=== PATIENT | male | born 1950 | race Caucasian/White ===

== ENCOUNTER 2022-06-15 08:02 | Outpatient (CLI) | payer MEDICARE, SELFPAY ==
--- NOTE | 2022-06-15 08:15 | CRLHL7_ITS ---
For Patients: As a result of the Century Cures Act, medical imaging exams and procedure reports are released immediately into your electronic medical record. You may view this report before your referring provider. If you have questions, please contact your health care provider. Indication: Low back pain. Technique: Multiplanar, multisequence MRI of the lumbar spine was performed without intravenous contrast. Comparison: None relevant available. Findings: There are 5 lumbar type vertebral segments identified. The vertebral body heights are maintained without evidence of fracture. There is no discrete T1 hypointense marrow infiltrating process. Mild levo convex curvature to the lumbar spine. The conus medullaris terminates at L1, normal. Cauda equina appears unremarkable. T12-L1: Minimal disc bulge without or foraminal narrowing. L1-2: Minimal disc bulge without spinal canal narrowing. Mild right neural foraminal narrowing. Left neural foramina patent. Mild facet arthropathy. L2-3: Mild disc bulge coupled ligamentum flavum thickening and facet hypertrophy resulting in mild spinal canal narrowing. Left foraminal disc protrusion abuts the exiting left L2 nerve. Right neural foramina appears patent. [id number] facet arthropathy. L3-4: Disc bulge couple ligamentum flavum thickening and facet hypertrophy resulting in mild spinal canal narrowing. Mild neural foraminal narrowing. Moderate facet arthropathy. L4-5: Mild disc bulge with minimal spinal canal narrowing. Disc bulge is slightly eccentric to the left slightly encroaching upon the descending left L4 nerve. Mild neural foraminal narrowing. Severe facet arthropathy. L5-S1: Moderate disc degeneration. No spinal canal or neural foraminal narrowing. Mild sacroiliac joint osteoarthritis. Impression: 1. At L2-3, left foraminal disc protrusion abutting the exiting left L2 nerve. 2. At L3-4, mild spinal canal and neural foraminal narrowing. 3. At L4-5, moderate left lateral recess narrowing with encroachment upon the descending left L4 nerve. 4. Moderate to severe multilevel facet arthropathy. Dictated by Shalom Rojas MD @ 06/15/2022 4:29:10 PM (Electronically Signed)
== END 2022-06-15 08:03 | disposition home or self-care (01) ==
PROVIDERS: PCP Family Medicine
DX: M54.50 Low back pain, unspecified (principal); M51.26 Other intervertebral disc displacement, lumbar region; I70.213 Atherosclerosis of native arteries of extremities with intermittent claudication, bilateral legs; G83.4 Cauda equina syndrome
CPT/HCPCS: 72148

== ENCOUNTER 2022-11-02 08:32 | Emergency (ER) | payer MEDICARE, SELFPAY ==
[2022-11-02 08:39] VITALS: BP 148/91; PULSE 99; RESP 18; TEMP 36.3; O2SAT 99; BMI 29.1
--- NOTE | 2022-11-02 08:49 | ED.GENADULT ---
HPI - General Adult General Chief complaint: Altered Mental Status Stated complaint: poor memory Time Seen by Provider: 11/02/22 08:49 History of Present Illness HPI narrative: pt here with confusion, got up this am about 0600 and made coffee then went out for a bike ride on his electric bike and now cannot remember going on bike ride upon returning home, per pt seemed cheerful and when they sat down for breakfast he was unable to recall questions he just asked, pt tearful 72-year-old man presenting to the emergency department with his with concern of confusion. Has per been experiencing some episodes of this over the last few months. This morning though he got up and went for usual bike ride. Sounds like it was a nice bike ride but once home in having sat down for breakfast he was unable to recall a number of things and this has continued. Can not remember what they/he did with the grandkids over the weekend among other things. No loss of sensation or weakness. No visual disturbances. No headache though does have a history of complex migraines. Did have recent neck injections with anesthetic and steroid for neck pain. Sounds as though description of location of injection would be where 1 might treat occipital neuralgia. Otherwise has been in usual state of health. No chest pain shortness of breath or difficulty with exertion. Related Data Home Medications Medication Instructions Recorded Confirmed acetaminophen 500 mg tablet 500 mg PO Q6H PRN 11/02/22 11/02/22 (Acetaminophen Extra Strength) cetirizine 10 mg capsule (Allergy 10 mg PO DAILY PRN 11/02/22 11/02/22 Relief (cetirizine)) cholecalciferol (vitamin D3) 50 50 mcg PO DAILY 11/02/22 11/02/22 mcg (2,000 unit) chewable tablet cyanocobalamin (vitamin B-12) 100 mcg IM Q4W 11/02/22 11/02/22 1,000 mcg/mL injection solution (Dodex) epinephrine 0.3 mg/0.3 mL IM 11/02/22 injection, auto-injector fluticasone propionate 50 1 spray intranasal DAILY PRN 11/02/22 11/02/22 mcg/actuation nasal spray,suspension (24 Hour Allergy Relief) gabapentin 300 mg capsule 300 mg PO 3XD 11/02/22 11/02/22 omega-3 fatty acids-fish oil 300 1 cap PO DAILY 11/02/22 11/02/22 mg-1,000 mg capsule tizanidine 2 mg tablet 2 - 4 mg PO 3XD 11/02/22 11/02/22 Allergies Allergy/AdvReac Type Severity Reaction Status Date / Time aspirin Allergy Verified 11/02/22 08:38 ciprofloxacin [From Cipro] Allergy Verified 11/02/22 08:38 sulfamethoxazole Allergy Verified 11/02/22 08:38 [From Bactrim] trimethoprim [From Bactrim] Allergy Verified 11/02/22 08:38 Review of Systems Status of ROS: Reports: 6 or more systems reviewed and unremarkable except as noted in History and below PFSH PFS Social History Smoking Status: Never smoker How often do you have a drink containing alcohol: monthly or less AUDIT-C Alcohol total score: 1 Non-prescribed substance use: denies use Exam Narrative: Exam Narrative: Very pleasant. NAD. Becomes a little tearful. Clearly a little difficulty with recall. Well-perfused peripherally and moving all extremities without difficulty; good strength. No sensory loss. Cranial nerves 2-12 intact. Heart with mildly elevated rate in a regular rhythm. Lungs are clear. No evidence of trauma on his person. Abdomen is soft and nontender. Const: Vital Signs, click to edit/add: Vital Signs - 24 hr 11/02/22 08:39 Temperature 97.3 F L Pulse Rate [Right Pulse Oximeter] 99 Respiratory Rate 18 Blood Pressure [Ri ght Upper Arm] 148/91 H Pulse Oximetry 99 Oxygen Delivery Me thod Room Air Documenting provider has reviewed patient's vital signs: yes Course Vital Signs Vital signs: Initial Vital Signs Temperature 97.3 F L 11/02/22 08:39 Temperature Source Temporal Artery Scan 11/02/22 08:39 Pulse Rate 99 11/02/22 08:39 Respiratory Rate 18 11/02/22 08:39 Blood Pressure 148/91 H 11/02/22 08:39 Blood Pressure Mean 110 H 11/02/22 08:39 Blood Pressure Position Sitting 11/02/22 08:39 Pulse Oximetry 99 11/02/22 08:39 Oxygen Delivery Method Room Air 11/02/22 08:39 Vital Signs Temperature 97.3 F L 11/02/22 08:39 Pulse Rate 99 11/02/22 08:39 Respiratory Rate 18 11/02/22 08:39 Blood Pressure 148/91 H 11/02/22 08:39 Pulse Oximetry 99 11/02/22 08:39 Oxygen Delivery Method Room Air 11/02/22 08:39 Temperature 97.3 F L 11/02/22 08:39 Pulse Rate 77 11/02/22 10:33 Respiratory Rate 18 11/02/22 10:33 Blood Pressure 136/79 11/02/22 10:33 Pulse Oximetry 94 11/02/22 10:33 Oxygen Delivery Method Room Air 11/02/22 10:33 Medical Decision Making MDM Narrative Medical decision making narrative: Differential includes TIA, CVA, amnesia of unclear etiology stress response, not really a dissociated experience, atypical migraine, indolent infection, electrolyte abnormality though would be rather specific, vitamin deficiency. IV has been established. Urinalysis collected. He is hydrating. Monitored in the emergency department for a time and memory began to improve, return. They were relieved. Discussed this case with Neurology on-call to inquire whether any imaging would be warranted in this case. I have a hard time thinking that imaging would be terribly useful. Neurology favors transient global amnesia. Able to offer reassurance to Mr. Manzanares. See patient discharge plan Lab Data Labs: Lab Results 11/02/22 Range/Units Unknown Urine Color Yellow (Yellow) Urine Appearance Clear (Clear) Urine pH 6.0 (5.0-8.5) Ur Specific [place] 1.015 (1.000-1.030) Urine Protein Negative (Negative) Urine Glucose (UA) Negative (Negative) Urine Ketones Negative (Negative) Urine Blood Negative (Negative) Urine Nitrite Negative (Negative) Urine Bilirubin Negative (Negative) Urine Urobilinogen 0.2 (0.2-1.0) Ur Leukocyte Esterase Negative (Negative) Urine RBC 0-2 (0-2) Urine WBC 0-2 (0-5) Ur Squamous Epith Cells None (None-Few) Urine Bacteria None (None) Discharge Plan Discharge Clinical Impression: Transient global amnesia Patient Disposition: Home w/ Parent or Adult Condition: Improved Additional Instructions: Stay well-hydrated. Your brain likes this. Your brain also likes quality and regular sleep and exercise. Return as needed. Will call you if anything going on with the urinalysis Prescriptions: No Action tizanidine 2 mg tablet 2 - 4 mg PO 3XD gabapentin 300 mg capsule 300 mg PO 3XD acetaminophen [Acetaminophen Extra Strength] 500 mg tablet 500 mg PO Q6H PRN Allergy Relief (cetirizine) 10 mg capsule 10 mg PO DAILY PRN cholecalciferol (vitamin D3) 50 mcg (2,000 unit) tablet,chewable 50 mcg PO DAILY epinephrine 0.3 mg/0.3 mL auto-injector IM fluticasone propionate [24 Hour Allergy Relief] 50 mcg/actuation spray,suspension 1 spray intranasal DAILY PRN Rx Instructions: administer into each nostril omega-3 fatty acids-fish oil 300-1,000 mg capsule 1 cap PO DAILY cyanocobalamin (vitamin B-12) [Dodex] 1,000 mcg/mL solution 100 mcg IM Q4W Follow Up/Referrals: Jannet Reddy DO [Primary Care Provider] - Stand Alone Forms: [facility] Info Instructions
--- NOTE | 2022-11-02 09:07 | ED.NURSE ---
#20 sl [id number] r ac, blood drawn off iv start.
[2022-11-02 09:59] LABS: Appearance Urine Clear (Clear); Bilirubin Urine Negative (Negative); Blood Urine Negative (Negative); Color Urine Yellow (Yellow); Glucose Urine Negative (Negative); Ketones Urine Negative (Negative); Leukocyte Esterase Urine Negative (Negative); Nitrite Urine Negative (Negative); Protein Urine Negative (Negative); Specific Gravity Urine 1.015 (1.000-1.030); Urobilinogen Urine 0.2 (0.2-1.0)
[2022-11-02 10:07] LABS: RBC Urine 0-2 (0-2); WBC Urine 0-2 (0-5)
[2022-11-02 10:33] VITALS: BP 136/79; PULSE 77; RESP 18; O2SAT 94
== END 2022-11-02 10:36 | disposition home or self-care (01) ==
PROVIDERS: Emergency Provider Family Medicine; PCP Family Medicine
DX: G45.4 Transient global amnesia (principal)
CPT/HCPCS: 81001; 99282; 99283; 99284

== ENCOUNTER 2023-03-12 20:58 | Outpatient (CLI) | payer MEDICARE, SELFPAY | END 2023-03-12 20:59 | disposition home or self-care (01) | LOC: SLEEP 20:59 | PROVIDERS: PCP Family Medicine; Visit Provider Otolaryngology | DX: G47.33 Obstructive sleep apnea (adult) (pediatric) (principal); G47.31 Primary central sleep apnea | CPT/HCPCS: 95811 ==

== ENCOUNTER 2023-04-29 20:29 | Outpatient (CLI) | payer MEDICARE, SELFPAY | END 2023-04-29 20:30 | disposition home or self-care (01) | LOC: SLEEP 20:30 | PROVIDERS: PCP Family Medicine; Visit Provider Internal Medicine | DX: G47.33 Obstructive sleep apnea (adult) (pediatric) (principal); G47.31 Primary central sleep apnea | CPT/HCPCS: 95811 ==

== ENCOUNTER 2023-08-21 08:45 | Outpatient (RCR) | payer MEDICARE, SELFPAY | END 2023-09-17 14:33 | disposition home or self-care (01) | PROVIDERS: PCP Family Medicine; Visit Provider Family Medicine | DX: M54.42 Lumbago with sciatica, left side (principal); Z51.89 Encounter for other specified aftercare | CPT/HCPCS: 97012; 97110; 97161 ==

== ENCOUNTER 2024-02-14 07:15 | Outpatient (CLI) | payer MEDICARE, SELFPAY ==
--- NOTE | 2024-02-14 08:29 | W.ANESCHARGE ---
Anesthesia Charges Start Date/Time Anesthesia Start Date: 02/14/24 Anesthesia Start Time: 08:04 Stop Date/Time Anesthesia Stop Date: 02/14/24 Anesthesia Stop Time: 08:27
--- NOTE | 2024-02-14 09:35 | W.ANESCHARGE ---
Anesthesia Charges Start Date/Time Anesthesia Start Date: 02/14/24 Anesthesia Start Time: 08:04 Stop Date/Time Anesthesia Stop Date: 02/14/24 Anesthesia Stop Time: 08:27 Summary Extremes of Age - Over 70 or under 1: MDA
== END 2024-02-14 07:16 | disposition home or self-care (01) ==
LOC: OP CLINIC 07:16
PROVIDERS: PCP Family Medicine; Visit Provider Internal Medicine Gastroenterology
DX: Z12.11 Encounter for screening for malignant neoplasm of colon (principal); D12.2 Benign neoplasm of ascending colon; K64.8 Other hemorrhoids; Z86.0101 Personal history of adenomatous and serrated colon polyps
CPT/HCPCS: 00811; 45380; 88305; 99100; J2704

== ENCOUNTER 2024-03-11 07:16 | Day surgery (SDC) | payer MEDICARE, SELFPAY ==
[2024-03-11] VITALS (26 sets, daily range): BP systolic 90–155; BP diastolic 52–89; PULSE 59–100; RESP 12–18; TEMP 36.1–36.6; O2SAT 93–99; BMI 29.5
[2024-03-11] MEDS: LACTATED RINGERS 1000 ML 1,000 ML 100 ML IV ×2 (07:10→10:40)
--- OUTSIDE RECORDS SUMMARY | 2024-03-11 07:20 | XMS_ITS | Clinical Summary ---
Author Organization [facility] Address [address] [place] [address] Care Team Providers Care Surface Miner Name Role Phone Unavailable Primary Care Provider Unavailabl e Source Comments Patient records contain information from all sites at [facility]. For routine questions regarding patient records, call [phone] during business hours, M-F 8:00 AM - 5:00 PM Central Time. Record requests for emergency care only can be directed to [phone] at any time.[facility] Immunizations Name Administration Dates Next Due H1N1 All Forms 03/28/2009 Influenza, Unspecified 11/14/2009,2008,01/16/2008,12/10/2006, 3 Social History Tobacco Use Types Packs/Day Years Used Date Smoking Tobacco: Never Assessed Nutrition Answer Date Recorded Nutrition: EVOO Fat Source Unknown 03/22 Nutrition: Servings of Fruits/Vegetables per Day Not on file 03/22/2023 Dental Answer Date Recorded Dental: Regular Dentist Unknown 03/25/19 24 Sex and Gender Information Value Date Recorded Sex Assigned at Not on file Legal Sex Male 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 [employer] Gender Identity Male 03/25/2023 9:04 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 [employer] Sexual Orientation Straight 03/25/2023 9: 04 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 [employer]UD[employer] Plan of Treatment Health Maintenance Due Date Last Done Comments CT Colonography 1949 Cologuard 1950 Colonoscopy 1950 Colorectal Cancer Screening 1950 FIT 1950 Hepatitis C Screening 1950 Zoster Vaccines (2 of 3) 02/13/2012 12/19/2011 Depression Screening (Annual PHQ-2) 03/04/2023 Fall Risk Screen (Annual) 03/04/2023 COVID-19 Vaccine ( season) 2023 12/05/2022, 12/12/2021, 07/04/2021, Additional history exists Influenza Vaccine (#1) 2023 , 12/13/2021, 11/28/2020, Additional history exists Fasting Glucose for Diabetes Screening 03/25/2026 03/25/2023, 03/28/2022, 02/15/2021, Additional history exists DTaP,Tdap,and Td Vaccines (3 - Td or Tdap) 06/24/2031 06/23/2021, 12/28/2010 Pneumococcal vaccine (50+ years) Completed 03/23/2016, 01/07/2015 IPV Vaccines Aged Out No longer eligi ble based on patient's age to complete this topic Insurance [facility]
--- OUTSIDE RECORDS SUMMARY | 2024-03-11 07:20 | XMS_ITS | Clinical Summary ---
Author Organization [facility] Address [place], [place] [address] Care Team Providers Care Wireless Cellular Technician Name Role Phone Brandy Rivera MD Unavailable [phone] Teresa Graves MD Unavailable Jannet Reddy DO Primary Care Provider Allergies Active Allergy Reactions Criticality Noted Date Comments Aspirin Anaphylaxis 07/01/2006 Sulfamethoxazole-Trimet hoprim Shortness Of Breath 07/16/2006 Hymenoptera Allergenic Extract 07/01/2006 Ciprofloxacin Other - Describe In Comment Field 07/01/2006 intol Duloxetine Other - Describe In Comment Field 11/24/2013 Mood swings and anxiety Trazodone 07/01/2006 intol priprisim Venlafaxine Analogues Mental Status Change 01/03 Pramipexole Mental Status Change 07/13/2013 24 hours of extreme fatigue and mental status change. Medications acetaminophen (TYLENOL EXTRA STRGTH) 500 mg tablet Take 1 tablet by mouth every 6 hours if needed. Max acetaminophen dose: 4000mg in 24 hrs. 0 08/07/19 12 Active omega-3 fatty acids-vitamin E (FISH OIL) 1,000 mg cap Take 1 capsule by mouth once daily. 0 12/19/19 12 Active cetirizine (ZYRTEC) 10 mg tablet Take 1 tablet by mouth once daily. 0 11/10/19 15 Active fluticasone (50 mcg per actuation) nasal solution (FLONASE) Inhale 1 [place] into both nostrils once daily. 11/27/19 Active CONTOUR NEXT TEST STRIPS strip 03/10/19 Active CONTOUR NEXT METER 03/10/19 Active cholecalciferol (VITAMIN D-3) 2,000 unit capsule Take 1 capsule by mouth once daily. 0 02/12/20 Active BiPapIndications: Complex sleep apnea syndrome ASV-BIPAP machine for home use at pressure: EPAP at 9 cmw PS 3-10 cmw, Mask of choice 1 x 3 mo, lifetime length of need, daily use. 1 Each 05/27/19 24 Active tiZANidine (ZANAFLEX) 2 mg tabletIndications :Cervical stenosis of spine Take 1 Tablet (2 mg) by mouth every 6 hours if needed for Muscle Spasm. 90 Tablet 3 07/03/19 24 Active gabapentin (NEURONTIN) 300 mg capsuleIndication s:Headache syndrome,Fibromya lgia TAKE 3 CAPSULES BY MOUTH AT BEDTIME 300 Capsule 2 10/26/19 24 Active meclizine (ANTIVERT) 25 mg tabletIndications :Benign positional vertigo, right Take 1 Tablet (25 mg) by mouth 3 times daily if needed for Vertigo. 30 Tablet 12/09/19 24 Active EPINEPHrine (EPIPEN) 0.3 mg/0.3 mL auto-injectorIndi cations:Bee sting allergy Inject 0.3 mg intramuscular one time if needed for Allergic Reaction. 1 Each 02/21/20 24 Active EPINEPHrine (EPIPEN) 0.3 mg/0.3 mL auto-injectorIndi cations:Bee sting allergy Inject 0.3 mg intramuscular one time if needed for Allergic Reaction. 1 Each 03/28/19 23 024 Discontin ued(Reord er (E-cancel not sent)) naproxen (ALEVE) 220 mg tabletIndications :Primary osteoarthritis of left hip Take 1-2 Tablets (220-440 mg) by mouth two times daily with meals. 09/23/19 24 024 Discontin ued(*Med complete/ Regimen complete/ Level of care change) polyethylene glycol-electrolyt e (GOLYTELY) 236-22.74-6.74 -5.86 gram suspensionIndicat ions:Polyp of colon, unspecified part of colon, unspecified type Drink 2 liters the day before colonoscopy and 2 liters 6 hours before colonoscopy appointment 4000 mL 02/03/20 24 024 Discontin ued(*Med complete/ Regimen complete/ Level of care change) Hospital, Clinic, or Other Facility Administered Medication Ordered Dose Route Frequency Start Date End Date Status cyanocobalamin (VITAMIN B12) 1,000 mcg/mL injection 1,000 mcgIndications:B12 deficiency 1000 mcg IM Q 4 WEEKS (28 days) 03/09/2024 02/08/2025 Active cyanocobalamin (VITAMIN B12) 1,000 mcg/mL injection 1,000 mcgIndications:B12 deficiency 1000 mcg IM Q 4 WEEKS (28 days) 03/26/2023 02/25/2024 Ended Active Problems Problem Noted Date Diagnosed Date 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 Complex sleep apnea syndrome 07/30/2023 Psoriatic arthritis 03/28/2022 Assessment & Plan (03/31/2023 10:18 AM PROFESSIONAL FEE CODER): chart update only today. stable. Jannet WatermanOPhilomena 03/31/2023 10:18 AM s/p right middle finger DIP joint fusion, DOS: 10/11/[address] Mike Nieves 10/23/2017 Cervical stenosis of spine 06/29/2016 Overview (06/29/2016): C4-5C5-6. Sees Neurology for this. Obesity 11/09/2014 Adjustment disorder with mixed anxiety and depre ssed mood 01/27/2014 Osteoarthritis of finger 09/03/2013 Headache(784.0) 08/18/2012 Restless leg syndrome 08/18/2012 Prediabetes 12/27/2011 Vitamin D deficiency 02/05/2011 Allergic rhinitis, cause unspecified 01/15/2011 Colon polyp 10/16/2010 Overview (02/20/2024): Colonoscopy 10/2010 polyp repeat in 3 years Colonoscopy 11/2013 polyp repeat in 5 years Colonoscopy 01/2019 polyp, repeat in 5 years Colonoscopy 02/2024 TA, repeat in 7 years Fibromyalgia 09/18/2010 Bee sting allergy 09/18/2010 Dyslipidemia 09/12/2008 Sensorineural hearing loss, asymmetrical 008 BPH with urinary obstruction 07/01/2006 Unspecified sleep apnea 07/01/2006 Overview (07/01/2006): has C-Pap Resolved Problems Problem Noted Date Diagnosed Date Resolved Date Disease of spinal cord, unspecified 02/05/2024 02/21/2024 Overview (02/05/2024): Documented on 08/09/2021 by RADHA HERNANDEZ TERE 10/30/2005 AHI-45 06/15/2013 017 Chest pain 09/12/2008 08/18/2012 Overview (01/31/2009): - cor angiogram negative, troponin negative x 3, no significant echo findings No recent symptoms. Mike Brian MD signed electronically .................... 01/31/2009 Encounters Date Type Department Care Team Description 03/09/2024 9:00 AM PROFESSIONAL FEE CODER Nurse/Clinic Staff Only [facility] [address] [place] [address] Immunization/Injection (VITAMIN B-12 INJECTION ) 03/09/2024 Travel 03/04/2024 Travel 02/21/2024 7:45 AM PROFESSIONAL FEE CODER Office Visit [facility] [address] [place] [address] Jannet Reddy, DO Preoperative Exam (left hip total replacement 03/11/24/Dr. Hercules); Musculoskeletal Problem (pain on right side goes into leg) 02/21/2024 Travel 02/16/2024 Travel 02/15/2024 Lab Requisition [facility] [phone] Kenney Christensen MD 02/14/2024 7:15 AM PROFESSIONAL FEE CODER Office Visit [facility] at [address] [address] Kenney Christensen MD 02/09/2024 Travel 02/06/2024 8:45 AM PROFESSIONAL FEE CODER Nurse/Clinic Staff Only [facility] [address] [place] [address] Immunization/Injection (VITAMIN B-12 INJECTION ) 02/05/2024 10:35 AM PROFESSIONAL FEE CODER Office Visit [facility] [address] [place] [address] Tamy Herring, Preoperative Exam ([facility] - 02/13 - [place] ) 02/05/2024 Travel 02/01/2024 Travel 01/09/2024 9:00 AM PROFESSIONAL FEE CODER Nurse/Clinic Staff Only [facility] [address] [place] [address] Immunization/Injection (VITAMIN B-12 INJECTION ) 01/09/2024 Travel 01/04/2024 Travel 12/10/2023 8:40 AM CDT Office Visit [facility] [address] [place] [address] Alejandro Gonzalez MD Musculoskeletal Problem (Follow-up USGI done on 11/13/2023/LEFT intra-articular hip joint/[place] relief for about a week, and had uncontrollable Hiccups ) 12/10/2023 Travel from Last 3 Months Immunizations Name Administration Dates Next Due AMB INFLUENZA IIV3 (AGE 65+ YRS) PF (Flu Clinic Only) 12/13/2018 AMB Influenza, IIV3 (Age >=3 years)(Flu Clinic Only) 12/18/2010,01/16/2008 Amb Influenza, Inactivated A IIV4 (Age 65+ Years) Preserv Free 12/10/2019 COVID-19 vaccine (Moderna 100mcg/0.5mL) PF, MDV 07/04/2021,05/16/2020,04/18/2020 COVID-19 vaccine (Moderna Leonardo lucia 50mcg/0.25mL) PF, MDV 01/02/2021 Influenza A (H1N1), Inactivated 03/28/2009 Influenza A (H1N1), Inactiva dimitrios (Age >=3 Years) 03/28/2009 Influenza, High-dose Inactivated 12/06/2023,10/0 09/2015,01/07/2015 Influenza, High-dose Quadriv alent Inactivated 11/26/2022 Influenza, IIV3 (Age 6-35 mos) 12/18/2010,2009 Influenza, IIV3 (Age >=3 years) 11/11/19 13,11/20/2011,11/14/2009,12/06,01/16/2008,12/10/2006,12/13/2005 ,01/23/2003 Influenza, IIV4 12/08/2013 Influenza, Inactivated AIIV4 (Age 65+ Years) Preserv Free 12/13/2021,11/28/2020 Influenza, Inactivated IIV3 (Age 65+ Years) Preserv Free 11/20/2017,12/24/2016 Pneumococcal Poly,23-Valent (Pneumovax) 03/23/2016 Pneumococcal conj 13-Valent (Prevnar 13) 01/07/2015 RSV, Recombinant ADJ Reconst ituted (Arexvy 120MCG/0.5mL) 12/06/2023 Td (Age >=7 Years) 04/24/2004 Tdap 06/23/2021,12/28/2010 Zoster (Zostavax-ZVL, live) 12/19/2011 Family History Medical History Relation Name Comments Heart Disease Father at 57 of what sounds like valvular heart disease due to strep in childhood Allergies Mother Arthritis Mother Osteoarthritis Asthma Mother Cancer-breast Mother at 76 of breast cancer Other Mother migraines Relation Name Status Comments Father rheumatic heart disease Mother breast ca Social History Tobacco Use Types Packs/Day Years Used Date Smoking Tobacco: Never Smokeless Tobacco: Never Tobacco Cessation:Counseling Given: Yes Alcohol Use Standard Drinks/Week Comments Yes 0 (1 standard drink = 0.6 oz pure alcohol) 3-4 nights weekly glass of wine [facility] Utilities Answer Date Recorded Do you have trouble paying f or utilities (for example, heat, electricity, water, phone)? Yes 03/27/2023 PHQ-2 Answer Date Recorded PHQ-2 TOTAL SCORE 0 03/27/2023 Social Connections Answer Date Recorded Do you often feel lonely or isolated from those around you? 0 03/27/2023 Financial Resource Strain Answer Date R ecorded Difficulty of Paying Living Expenses 3 12/26/2022 Difficulty of Paying Living Expenses Not on file 12/26/2022 Food Insecurity Answer Date Recorded Do you worry your food will run out before you are able to buy more? 1 03/27/2023 Transportation Needs Answer Date Record ed Does lack of transportation keep you from medica l appointments? 1 03/27/2023 Does lack of transportation keep you from work, meetings or getting things that you need? 1 03/27/2023 Housing Stability Answer Date Recorded What is your housing situation today? 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 on file Not on file Not on file Obstetrics History Last Filed Vital Signs Vital Sign Reading Time Taken Comments Blood Pressure 117/66 02/21/2024 7:46 AM PROFESSIONAL FEE CODER Pulse 65 02/21/2024 7:46 AM PROFESSIONAL FEE CODER Temperature 36.9 C (98.4 F) 11/13/2023 9:00 AM CDT Respiratory Rate 18 07/08/2018 11:19 AM CDT Oxygen Saturation 98% 02/21/2024 7:46 AM PROFESSIONAL FEE CODER Inhaled Oxygen Concentration - - Weight 90.9 kg (200 lb 6.4 oz) 02/21/2024 7:46 A M PROFESSIONAL FEE CODER Height 176.5 cm (5' 9.5) 07/30/2023 9:58 AM CDT Body Mass Index 29.17 07/30/2023 9:58 AM CDT Plan of Treatment Upcoming Encounters Date Type Department Care Team (Late st Contact Info) Description 04/09/2024 9:00 AM PROFESSIONAL FEE CODER Nurse/Clinic Staff Only [facility] [address] [place] [address] Health Maintenance Due Date Last Done Comments Zoster (shingles) series for age 50+ (2 of 3) 02/13/2012 12/19/2011 Depression screening for age 12+ 03/29/2024 03/29/2023, 03/27/2023, 02/16/2021, Additional history exists Medicare Wellness for age 65+ 03/29/2024, 03/28/2022, 02/13/2021, Additional history exists BMI (ht and wt on same day) for age 18+ 07/29/2024 07/30/2023, 03/29/2023, 03/28/2022, Additional history exists Lipids for age 45-75 03/25/2028 03/25/2023, 03/28/2022, 02/15/2021, Additional history exists Colonoscopy through age 75 02/13/203102/13, 02/14/2024, 01/09/2019, Additional history exists Tetanus booster 06/24/2031 06/23/2021, 12/03, 04/24/2004 Hepatitis C screening for ag e 18-79 Completed 11/03/2013 Pneumococcal series for age 50+ Completed 7, 01/07/2015 Tdap Completed 06/23/2021, 12/28/2010 COVID-19 vaccine series Completed 12/06/19, 12/05/2022, 12/12/2021, Additional history exists Influenza for age 65+ Completed 12/06/2023 , 11/26/2022, 12/13/2021, Additional history exists RSV vaccine for adults or Completed 12/06/2023 Medical Devices Implanted Type Area Utility Plant Operative Device Identifier Shelf Expiration Date Model / Serial / Lot 2.5 Micro Conpression Ft Screws, Cannulated Fully Threaded. Implanted:Qty: 1 on 10/11/2017 by Mike Nieves MD at [facility] Right: Finger [employer] [id number] H / / [id number] H Description:[id number] Procedures Procedure Name Priority Date/Time Associated Diagnosis Comments EKG 12 LEAD Routine 02/24/2024 9:13 AM PROFESSIONAL FEE CODER Pre-op exam FL READING EKG - NO CHARGE, COMP ONLY Routine 02/24/2024 9:12 AM PROFESSIONAL FEE CODER Pre-op exam HEMOGLOBIN Routine 02/21/2024 8:50 AM PROFESSIONAL FEE CODER Pre-op exam PLATELET COUNT Routine 02/21/2024 8:50 AM PROFESSIONAL FEE CODER Pre-op exam BASIC METABOLIC PANEL Routine 02/21/2024 8:50 AM PROFESSIONAL FEE CODER Pre-op exam LAB TRACKING EVENT Routine 02/14/2024 8: 16 AM PROFESSIONAL FEE CODER PATH TISSUE EXAM Routine 02/14/2024 8:16 AM PROFESSIONAL FEE CODER COLONOSCOPY SCREENING Routine 02/14/2024 12:00 AM PROFESSIONAL FEE CODER Polyp of colon, unspecified part of colon, unspecified type History of colon polyps LIPID PANEL W REFLEX MEASURED LDL Routine 03/25/2023 11:35 AM PROFESSIONAL FEE CODER Dyslipidemia ANTI HCV Routine 11/03/2013 9:58 AM CDT Fibromyalgia from Last 3 Months or Most Recently Relevant to Health Maintenance Results * EKG 12 LEAD (02/24/2024 9:13 AM PROFESSIONAL FEE CODER) Jannet Reddy DO EKG ORD Final Resul t * FL READING EKG - NO CHARGE, COMP ONLY (02/24/2024 9:12 AM PROFESSIONAL FEE CODER) Jannet Lopest DO PB - PROVIDER READINGS Christal l Result * PLATELET COUNT [60166.2] (02/21/2024 8:50 AM PROFESSIONAL FEE CODER) PLATELET COUNT 225 140 - 400 Thousand/u L [facility] Blood BLOOD SPECIMEN / Unknown 02/21/2024 8:50 AM PROFESSIONAL FEE CODER 02/21/2024 8:50 AM PROFESSIONAL FEE CODER us Jannet Vu Detert DO HEMATOLOGY Final Resul t [facility] [address] [place] [address], [facility] [address] [place] [address] * HEMOGLOBIN (aka HGB) [83663.2] (02/21/2024 8:50 AM PROFESSIONAL FEE CODER) HEMOGLOBIN 13.7 13.2 - 17.1 g/dL [facility] Blood BLOOD SPECIMEN / Unknown 02/21/2024 8:50 AM PROFESSIONAL FEE CODER 02/21/2024 8:50 AM PROFESSIONAL FEE CODER us Jannet Vu Detert DO HEMATOLOGY Final Resul t Performing Organization Address City/[facility]/ZIP Co de Phone Number Retora Black [facility] [address] [place] [address], [place] [phone] [facility] [address] [place] [address] * (ABNORMAL) BASIC METABOLIC PANEL (02/21/2024 8:50 AM PROFESSIONAL FEE CODER) Pathologist [facility] GLUCOSE 100(H) 65 - 99 mg/dL [facility] Comment: Fasting reference interval For someone without known diabetes, a glucose value between 100 and 125 mg/dL is consistent with prediabetes and should be confirmed with a follow-up test. UREA NITROGEN (BUN) 18 7 - 25 mg/dL [facility] CREATININE 0.93 0.70 - 1.28 mg/dL [facility] EGFR 86 > OR = 60 mL/min/1. 73m2 [facility] BUN/CREATININE RATIO SEE NOTE: 6 - 22 (calc) [facility] Comment: Not Reported: BUN and Creatinine are within reference range. SODIUM 140 135 - 146 mmol/L [facility] POTASSIUM 4.7 3.5 - 5.3 mmol/L [facility] CHLORIDE 107 98 - 110 mmol/L [facility] CARBON DIOXIDE 25 20 - 32 mmol/L [facility] ELECTROLYTE BALANCE 8 7 - 17 mmol/L (calc) [facility] CALCIUM 9.4 8.6 - 10.3 mg/dL [facility] Blood BLOOD SPECIMEN / Unknown 02/21/2024 8:50 AM PROFESSIONAL FEE CODER 02/21/2024 8:50 AM PROFESSIONAL FEE CODER us Jannet Vu Detert DO CHEMISTRY Final Resul t Performing Organization Address [facility]/ZIP Co de Phone Number Retora Black [facility] [address] [place] [address], [place] [phone] [facility] [address] [place] [address] * LAB TRACKING EVENT (02/14/2024 8:16 AM PROFESSIONAL FEE CODER) Other (Other) Client Collect / Unknown 02/14/2024 8:16 AM PROFESSIONAL FEE CODER 02/15/2024 6:12 AM PROFESSIONAL FEE CODER us Kenney Christensen MD LAB BILL ONLY Final Res ult [facility] [address] [place] [id number], * PATH TISSUE EXAM (02/14/2024 8:16 AM PROFESSIONAL FEE CODER) Case Report Pathology Report Case: [id number] Authorizing Provider: Kenney Christensen MD Collected: 02/14/2024 0816 Ordering Location: [facility] Received: 02/17/2024 1039 Pathologist: Viktor Morse MD Specimen: Ascending Colon Biopsy 02/19/2024 4:12 PM PROFESSIONAL FEE CODER [facility] Final Diagnosis A) COLON, ASCENDING, POLYPECTOMY: 1. Tubular adenoma 2. Negative for high grade dysplasia 3. Per the colonoscopy report: a. Polyp size: 3 mm b. Resection: Complete c. Retrieval: Complete 02/19/2024 4:12 PM PROFESSIONAL FEE CODER [facility] Clinical Information Mr. Manzanares is a 73 y.o. undergoing high risk colon cancer surveillance due to a personal history colon polyps. 02/19/2024 4:12 PM PROFESSIONAL FEE CODER [facility] Gross Description A) Received in formalin is a alejo mucosal fragment measuring 2 mm in greatest dimension, which is entirely submitted in one cassette. It is labeled with the patient's name and designated ascending colon polyp. Batsheva Manzano 02/17/2024 10:58 AM 02/19/2024 4:12 PM PROFESSIONAL FEE CODER [facility] Microscopic Description The final diagnosis is based on microscopic examination of appropriate sections of all specimens. 02/19/2024 4:12 PM PROFESSIONAL FEE CODER [facility] EN[facility] Additional Information Interpreted at [facility] - [address], [place] [address] 02/19/2024 4:12 PM PROFESSIONAL FEE CODER [facility] Other (Ascending Colon Biopsy) 02/14/2024 8:16 AM PROFESSIONAL FEE CODER 02/17/2024 10:39 AM PROFESSIONAL FEE CODER Kenney Christensen MD PATHOLOGY/CYTOLOGY Final Result [facility] [address] [place] [address], [place] * COLONOSCOPY SCREENING (02/14/2024 12:00 AM PROFESSIONAL FEE CODER) Jannet Vu Detert DO GI PROCEDURE ORD Final Resu lt * (ABNORMAL) LIPID PANEL W REFLEX MEASURED LDL (03/25/2023 11:35 AM PROFESSIONAL FEE CODER) CHOLESTEROL,TOTAL 198 100 - 199 mg/dL 03/25/2023 11:54 PM PROFESSIONAL FEE CODER [facility] Comment: Cholesterol, Total Reference Ranges Desirable <200 mg/dL Borderline 200-239 mg/dL High >=240 mg/dL TRIGLYCERIDES 74 <150 mg/dL 03/25/2023 11:54 PM PROFESSIONAL FEE CODER [facility] HDL CHOLESTEROL 51 >40 mg/dL 11:54 PM PROFESSIONAL FEE CODER [facility] NON-HDL CHOLESTEROL 147(H) <145 mg/dl 03/25/2023 11:54 PM PROFESSIONAL FEE CODER [facility] CHOL/HDL RATIO 3.88 <4.50 03/25/2023 11:54 PM PROFESSIONAL FEE CODER [facility] LDL CHOLESTEROL 132(H) <=130 mg/dL 03/25/2023 11:54 PM PROFESSIONAL FEE CODER [facility] VLDL CHOLESTEROL 15 <=30 mg/dL 03/25/2023 11:54 PM PROFESSIONAL FEE CODER [facility] PROVIDER ORDERED STATUS RANDOM 03/25/2023 11:54 PM PROFESSIONAL FEE CODER [facility] Blood BLOOD SPECIMEN / Unknown Venipuncture / Unknown 03/25/2023 11:35 AM PROFESSIONAL FEE CODER 03/25/2023 11:36 AM PROFESSIONAL FEE CODER us Jannet Reddy DO CHEMISTRY Final Resul t [facility] [address] [place] [address], * ANTI HCV (11/03/2013 9:58 AM CDT) HEPATITIS C ANTIBODY Non-Reacti ve Non-Reacti ve 11/03/2013 3:31 PM CDT [facility] Blood specimen (specimen) BLOOD SPECIMEN / Unknown Venipuncture / Unknown 11/03/2013 9:58 AM CDT 11/03/2013 9:58 AM CDT Narrative [facility] - 11/03/2013 3:31 PM CDT Antibodies to HCV not detected; does not exclude the possibility of exposure to HCV. us Brandy Rivera MD SEND OUTS Final Resul t [facility] [address] [place] [address], from Last 3 Months or Most Recently Relevant to Health Maintenance Insurance MEDICARE PART A HB ONLY MEDICARE PART B HB ONLY [facility] MR Advance Directives * Full Code (Latest Code Status on File) Date Activated Date Inactivated Comments 10/11/2017 8:08 AM 10/11/2017 1:38 PM * Full Code Date Activated Date Inactivated Comments 09/12/2008 10:46 AM 09/13/2008 3:48 PM Care Teams Wireless Cellular Technician Relationship Specialty Start Date End Date Jannet Reddy DO [facility] [place] [address] PCP - General Family Practice 11/12/16 Brandy Rivera MD [address] [facility] [address] [place] [address] Rheumatology Rheumatology 11/03/13 Teresa Graves MD [address] [place] [address] Neurology Neurology 11/03/13
--- OUTSIDE RECORDS SUMMARY | 2024-03-11 07:20 | XMS_ITS | Continuity of Care Document ---
Author Name NwJEANMARIEN User [email or web address] Address Unknown Organization Unknown Address Unknown Procedures FILTER APPLIED:Only known Procedures with Onset Date within the last 5 years Procedure Date Procedure Provider Additional Inform ation Status THERAPEUTIC EXERCISES (14528) Completed PT EVAL LOW COMPLEX 20 MIN (93756) Completed POLYSOM 6/>YRS CPAP 4/> PARM (66917) Completed POLYSOM 6/>YRS CPAP 4/> PARM (41258) Completed EMERGENCY DEPT VISIT SF MDM (05891) Completed URINALYSIS AUTO W/SCOPE (11891) Completed EMERGENCY DEPT VISIT LOW MDM (42277) Completed Encounters FILTER APPLIED:Only known Encounters with Admission Date within the last 5 years Encounter Location Admission Discharge Billing Code Office Machine Inspector [facility] Benny Torres Outpatient Rhea Blakely Outpatient Higinio Hoffman Outpatient Jannet Talbert
--- OUTSIDE RECORDS SUMMARY | 2024-03-11 07:20 | XMS_ITS | Clinical Summary ---
Author Organization [facility] Address [address], [place] [address] Care Team Providers Care Teletypewriter Installer Name Role Phone Jannet Reddy DO Primary Care Provider [phone] Source Comments You are receiving this document as you are listed as the primary care provider,follow-up provider, or the patient has been referred to you for consultation.This is in compliance with the Medicare andMedicaid EHR Incentive Program,which states Providers who transition their patient to another setting of careor provider of care or refers their patient to another provider of care shouldprovide summary care record for each transition of care or referral. [employer] Allergies Active Allergy Reactions Criticality Noted Date Comments Aspirin Anaphylaxis High 02/16/2021 Ciprofloxacin Rash 02/16/2021 Sulfamethoxazole Respiratory Distress High Medications Medication Sig Dispensed Refills Start Date End Date Status Cholecalciferol (VITAMIN D3) 50 MCG (1999) daily. 02/12/2020 Active cyclobenzaprine (FLEXERIL) 10 MG tablet 10 mg at bedtime as needed. 02/15/2021 Active EPINEPHrine (EPIPEN) 0.3 MG/0.3ML injection ADMINISTER 0.3 MG IN THE MUSCLE 1 TIME NEEDED FOR ALLERGIC REACTION 02/13/2021 Active gabapentin (NEURONTIN) 300 MG capsule Take 600 mg by mouth daily at bedtime. 02/06/2021 Active [place]-3 (AKA FISH OIL) 1000 MG capsule daily. Acti ve Psyllium (METAMUCIL SMOOTH TEXTURE OR) Active Active Problems Problem Noted Date Diagnosed Date Osteoarthritis of spine with radiculopathy, cerv ical region 02/16/2021 Fibromyalgia 02/16/2021 Social History Tobacco Use Types Packs/Day Years Used Date Smoking Tobacco: Never Smokeless Tobacco: Never Alcohol Use Standard Drinks/Week Comments Yes 5 (1 standard drink = 0.6 oz pur e alcohol) Sex and Gender Information Value Date Recorded Sex Assigned at Male 02/13/2021 10:25 AM SKI MAKER WOOD Gender Identity Male 02/13/2021 10:25 AM SKI MAKER WOOD Sexual Orientation Straight 02/13/2021 10 :25 AM SKI MAKER WOOD Last Filed Vital Signs Vital Sign Reading Time Taken Comments Blood Pressure - - Pulse - - Temperature - - Respiratory Rate - - Oxygen Saturation - - Inhaled Oxygen Concentration - - Weight 88.5 kg (195 lb) 02/16/2021 8:44 AM SKI MAKER WOOD Height - - Body Mass Index - - Plan of Treatment Health Maintenance Due Date Last Done Comments Hep C Screening (Preventive Services) 1950 Adult Preventive Visit 10/30/1967 Cholesterol 1984 Colon Cancer Screening Plan Due 10/14/2010 10/13/2010 Zoster/Shingles (2 of 3) 02/13/2012 12/19/2011 DTaP/Tdap/Td (2 - Tdap) 12/28/2020 12/28/2010, 04/24 COVID-19 Vaccine ( season) 2023 01/02/2021, 05/16/2020, 04/18/2020 Influenza (#1) 2023 11/28/2020, 10/2019, 12/13/2018, Additional history exists RSV (1 - 1-dose 75+ series) 2024 Pneumococcal 65+ Yrs Completed 03/23/2016, 01/08/20 15 HepA Aged Out No longer eligi ble based on patient's age to complete this topic HepB Aged Out No longer eligi ble based on patient's age to complete this topic Hib Aged Out No longer eligi ble based on patient's age to complete this topic IPV (Polio) Aged Out No longer eligi ble based on patient's age to complete this topic MCV4 Aged Out No longer eligi ble based on patient's age to complete this topic Care Teams Teletypewriter Installer Relationship Specialty Start Date End Date Jannet Reddy [place] [place] [address] PCP - General Family Practice 04/11/21
--- OUTSIDE RECORDS SUMMARY | 2024-03-11 07:20 | XMS_ITS ---
Author Organization [facility] Address [address] [place] [address] Care Team Providers Care Civil Laboratory Technician Name Role Phone Unavailable Unavailable Unavailable Surgery Details Not on file Complications Check Surgery Details section. Procedure Estimated Blood Loss Check Surgery Details section. Procedure Findings Check Surgery Details section. Procedure Specimens Taken Check Surgery Details section.
--- OUTSIDE RECORDS SUMMARY | 2024-03-11 07:20 | XMS_ITS | Referral Summary ---
Author Organization [facility] Address [address] [place] [address] Care Team Providers Care Electronic Parts Salesperson Name Role Phone Unavailable Primary Care Provider Unavailabl e Source Comments Patient records contain information from all sites at [facility]. For routine questions regarding patient records, call [phone] during business hours, M-F 8:00 AM - 5:00 PM Central Time. Record requests for emergency care only can be directed to [phone] at any time.[facility] Immunizations Name Administration Dates Next Due H1N1 [...] on file Legal Sex Male 5:36 AM ELECTRICAL CAD TECHNICIAN Gender Identity Male 03/25/2023 9:04 AM ELECTRICAL CAD TECHNICIAN Sexual Orientation Straight 03/25/2023 9: 04 AM ELECTRICAL CAD TECHNICIAN Plan of Treatment Not on file Insurance [facility]
[2024-03-11] MEDS: ACETAMINOPHEN 500 MG TABLET 1000 MG PO ×3 (08:00→21:33)
[2024-03-11] MEDS: SODIUM CHLORIDE 0.9 % (FLUSH) 10 ML SYRINGE IVF (08:26)
[2024-03-11] MEDS: fentaNYL 100 MCG/2 ML inj IVP (09:04)
[2024-03-11] MEDS: MIDAZOLAM HCL 1 MG/ML inj IVP (09:04)
--- NOTE | 2024-03-11 09:16 | W.PM.H&PU ---
History & Physical Update History & Physical Update H&P Reviewed and patient assessed: No changes noted
--- NOTE | 2024-03-11 09:17 | CRLHL7_ITS ---
For Patients: As a result of the Cures Act, medical imaging exams and procedure reports are released immediately into your electronic medical record. You may view this report before your referring provider. If you have questions, please contact your health care provider. Indication: S/P TOTAL HIP ARTHROPLASTY Technique: AP hip centered pelvis and lateral view left hip Findings/Impression: Hardware from a left total hip arthroplasty is in satisfactory position. Bone alignment is normal. No sign of acute fracture. Postop changes are within normal limits. Dictated by Benny Lau MD @ 03/12/2024 12:21:59 PM (Electronically Signed)
--- NOTE | 2024-03-11 09:20 | SUR.PREOP ---
TIME?OUT:?04 PT/RN/MDA?VERIFICATION?OF?SURGICAL?SITE,?PROCEDURE,?AND?CONSENT OBTAINED?PRIOR?TO?INVASIVE?PROCEDURE.
[2024-03-11] MEDS: TRANEXAMIC ACID 100 MG/ML INJ 1000 MG IV (09:34)
[2024-03-11] MEDS: CEFAZOLIN 2 GM in 0.9 % SODIUM CHLORIDE Mini-bag 100 ML IVPB ×2 (09:34→15:15)
--- NOTE | 2024-03-11 10:00 | CRLHL7_ITS ---
For Patients: As a result of the Cures Act, medical imaging exams and procedure reports are released immediately into your electronic medical record. You may view this report before your referring provider. If you have questions, please contact your health care provider. Indication: Hip replacement surgery Technique: AP hip fluoroscopic image. Fluoroscopy time 29.9 seconds. Findings/Impression: Hardware from a left total hip arthroplasty is in satisfactory position. Dictated by Benny Lau MD @ 03/11/2024 12:57:53 PM (Electronically Signed)
--- NOTE | 2024-03-11 10:37 | W.PM.NB ---
Nerve Block Nerve Block Time Seen by Provider: 09:08 Date Seen: 03/11/24 Type of block requested by surgeon for post-operative analgesia: MINAL/LFCN Side: left Time out performed: Yes Verification of patient name: Yes Verification of date of : Yes Site marking: site marked Name of person performing procedure: Eusebio Continuous monitoring Was continuous monitoring of O2 sat, B/P, nuclear monitoring technician, recorded every 15 minutes?: Yes Procedure Checklist: sterile prep, needles and gloves Ultrasound guided. Images saved: Yes Medications given in 5ml increments after negative aspiration: Ropivicaine %: 0.5 mL: 30 Needle gauge: 20 Precedex (mcg): 25 Patient tolerated procedure well: Yes Additional comments: Needle noted below psoas tendon needle noted adjacent to LFCN Block Charges Block Charge (with Pro Fee): Other Periph Nerve Block Use of Ultrasound Machine for Block: Yes- US Guidance/pain block
--- NOTE | 2024-03-11 10:38 | W.ANESCHARGE ---
Anesthesia Charges Start Date/Time Anesthesia Start Date: 03/11/24 Anesthesia Start Time: 09:12 Stop Date/Time Anesthesia Stop Date: 03/11/24 Anesthesia Stop Time: 11:51 Summary Extremes of Age - Over 70 or under 1: MDA
--- NOTE | 2024-03-11 10:52 | PM.ORPRC ---
Procedure Note Date of procedure: 03/11/24 Procedure: PREOPERATIVE DIAGNOSIS: 1. Left hip osteoarthritis, severe, primary POSTOPERATIVE DIAGNOSIS: 1. Left hip osteoarthritis, severe, primary PROCEDURE: 1. Left total hip arthroplasty-anterior approach 2. 49833 - intraoperative fluoroscopy up to 1 hour. SURGEON: Sam Campuzano MD. WEALTH MANAGEMENT MANAGER: Eleazar Oakes PA-C; VIANNEY Mcgovern - Of note, a skilled research assistant member was critical for this case to aid in patient positioning, tissue retraction, limb manipulation/positioning, dislocation/relocation, patient safety, and closure. ANESTHESIA: Spinal anesthetic EBL: 300 mL IMPLANTS: DePuy J&J uncemented total hip [place] cup size 54, hole eliminator, +4 neutral liner Actis stem, high offset, size 9 +8.5 mm ceramic 36 mm head. COMPLICATIONS: None evident INDICATIONS: The patient is a pleasant 73-year-old male who has experienced severe left hip pain and difficulty bearing weight. Workup included x-rays which revealed severe osteoarthrosis in the hip. Given the deformity, the dysfunction, and the pain, as well as the failure of nonoperative management, recommendation was made for surgery. FINDINGS: Full-thickness chondral loss in the femoral head superiorly. To lesser degree acetabular chondromalacia. Large cystic structure encountered in the posterior superior acetabulum measured 1.5 cm in diameter and had a depth of approximately 1.5-2 cm. DESCRIPTION OF PROCEDURE: Following a thorough discussion of risks, benefits, and alternatives consent was obtained and the left hip was marked. The patient was brought to the operating room and placed supine on the operating table. Induction of anesthesia was undertaken. 2 g IV Ancef and 1 g tranexamic acid was administered within 1 hr of incision preoperatively. Proper time-out was performed identifying proper patient, site, procedure. The operative extremity was prepped and draped in the appropriate sterile fashion using ChloraPrep after the patient was positioned on the [place] table with head in neutral alignment and all bony prominences well padded. C-arm fluoroscopic imaging was utilized to confirm proper pelvis rotation and position, and to get true AP films of both the contralateral left, and the affected left hip. This is for comparison. A longitudinal incision was made starting approximately 1 cm distal to the ASIS, and 3-4 cm lateral. The incision was extended distally aiming toward the lateral border the patella. Sharp incision through skin and bovie cautery through the subcutaneous tissue allowed identification of the TFL fascia. This was sharply divided, and the fascia bluntly released from the muscle fibers as we dissected medial. Upon coming to the medial border, we were able to retract the TFL laterally, and penetrated the deeper fascia and identify the crossing circumflex vessels. These were ligated/cauterized. The rectus was elevated from the capsule, and retractors placed laterally and medially along the femoral neck to help with visualization of the capsule. We then performed an inverted T capsulotomy. The capsule was tagged for later repair. Retractors were placed inside the capsule. The femoral neck was visualized after releasing medially down to the lesser trochanter, along the saddle laterally, and up onto the acetabulum. The femoral neck cut was made in line with our preoperative templating. The head was removed in a single piece, and sized. We turned our attention to acetabular preparation. Initially, the labrum was resected from around the perimeter, the pulvinar was excised, allowing us to visualize the false wall. We started the reaming with a 43 mm reamer. This was medialized down to the true wall. We then enlarged our reamers sequentially up to one size less than the selected cup size. Once the preparation was complete, a large osseous cyst was appreciated in the posterior superior acetabulum. It did have a bony trough, again measured approximately 1.5 cm in diameter and had a depth of 1.5-2 cm. We backfilled this with quality bone from the femoral head and packed it with a combination of tamp and Reamer on reverse. Once the cyst was filled, we trialed at the same size and found it to have an excellent fit. The selected cup was then opened, inserted, and impacted in line with the goal of 40-45? of abduction, and 20-25? of anteversion. This was confirmed on C-arm fluoroscopic imaging to be in the appropriate/goal position. Once the cup was placed we placed a hole eliminator and a liner consistent with preop planning. Attention was turned to the femoral preparation. The limb was extended, externally rotated, and adducted. The posteromedial capsule was released, as retractors were placed allowing excellent access to the proximal femur. Initially a boxing machine operator was followed by canal finder followed by various broaches. We broached sequentially up to size noted above, found it to have excellent rotational control, and trialing various heads and necks, revealed that appropriate neck offset, and the above noted head size provided the greatest stability, and zoroastrianism of length, and offset. C-arm fluoroscopic imaging confirmed position of the stem, as well as leg lengths, which were compared with the pre procedure all fluoroscopic images. Trial implants were removed, the real femoral stem inserted, as was the ceramic head. After reducing, the leg was placed through range of motion and stability was confirmed anterior, posterior, and lateral. A 3 min Betadine soak was then performed, and thorough irrigation with normal saline followed. Closure of the capsule was performed with #1 PDS. Bleeding was confirmed to be controlled at this stage, and the TFL fascia was closed with #0 strata fix. Subcutaneous, and subcuticular closure was performed with 2-0 Vicryl and 4-0 Monocryl, respectively. Dressings were applied, and the patient was awoken from anesthesia and transferred the PACU in stable condition. A skilled research assistant member was critical for this case to aid in patient positioning, tissue retraction, proximal femur exposure, limb manipulation/positioning, dislocation/relocation, patient safety, and closure. PLAN: 1. Weight bear as tolerated operative extremity. 2. 23 hr perioperative antibiotics. 3. Ice. 4. PT/OT consults for ambulation assistance/mobility education. 5. Social work consult for discharge planning. 6. DVT prophylaxis with at SCDs and Xarelto x5 days followed by aspirin for a total of 1 month (however, given an aspirin allergy he may need Xarelto x4 weeks).
--- NOTE | 2024-03-11 11:54 | P.ANES_ITS ---
Anesthesia Charges Start Date/Time Anesthesia Start Date: 03/11/24 Anesthesia Start Time: 09:12 Stop Date/Time Anesthesia Stop Date: 03/11/24 Anesthesia Stop Time: 11:51 Summary Extremes of Age - Over 70 or under 1: PRACTICE PERFORMANCE MANAGER
[2024-03-11] MEDS: HYDROmorphone 0.5 mg/0.5 ml inj IVP ×3 (13:11→18:50)
[2024-03-11] MEDS: LACTATED RINGERS 1000 ML 1,000 ML 75 ML IV (14:06)
--- NOTE | 2024-03-11 16:17 | PM.IMCN1 ---
Date of Consult Consult date: 03/11/24 Primary Care Provider: Jannet Reddy, DO Consult Narrative Narrative: Sánchez Manzanares is a 73 year old male w/ PMHx of and Hx of ASA allergy, TERE 10/30/2005 AHI-45, TERE on CPAP , Fibromyalgia BPH with Hx of urinary obstruction, Cervical spinal stenosis, Dyslipidemia, Prediabetes, Restless leg syndrome & Bee sting allergy. Pt has Hx of Left hip osteoarthritis, Today pt is S/P Left total hip arthroplasty-anterior approach, EBL: 300 mL. Hx of peripheral neuropathies. He has periodic radiofrequency ablation of the nerves at the facets. Patient states that he has been able to urinate normally after surgery. Review of Systems Status of ROS: Reports: 6 or more systems reviewed and unremarkable except as noted in History and below [facility] Medical History (Updated 03/11/24 @ 23:12 by Colleen Forbes MD) Psoriatic arthritis ?L40.50 - Arthropathic psoriasis, unspecified (ICD-10) Allergic rhinitis ?J30.9 - Allergic rhinitis, unspecified (ICD-10) Vitamin D deficiency ?E55.9 - Vitamin D deficiency, unspecified (ICD-10) TERE (obstructive sleep apnea) ?G47.33 - Obstructive sleep apnea (adult) (pediatric) (ICD-10) Adjustment disorder with mixed anxiety and depressed mood ?F43.23 - Adjustment disorder with mixed anxiety and depressed mood (ICD-10) Fibromyalgia ?M79.7 - Fibromyalgia (ICD-10) BPH with urinary obstruction ?N40.1 - Benign prostatic hyperplasia with lower urinary tract symptoms (ICD-10) ?N13.8 - Other obstructive and reflux uropathy (ICD-10) Cervical stenosis of spine ?M48.02 - Spinal stenosis, cervical region (ICD-10) Restless leg ?G25.81 - Restless legs syndrome (ICD-10) Pre-diabetes ?R73.03 - Prediabetes (ICD-10) Minor head injury without loss of consciousness ?S09.90XA - Unspecified injury of head, initial encounter (ICD-10) Surgical History (Updated 03/11/24 @ 23:13 by Colleen Forbes MD) Status post left foot surgery ?Z98.890 - Other specified postprocedural states (ICD-10) History of prostatectomy ?Z90.79 - Acquired absence of other genital organ(s) (ICD-10) Status post finger joint fusion (10/11/17) ?Z98.1 - Arthrodesis status (ICD-10) History of cataract extraction (2019) ?Z98.49 - Cataract extraction status, unspecified eye (ICD-10) S/P right rotator cuff repair (03/10/10) ?Z98.890 - Other specified postprocedural states (ICD-10) S/P TURP (status post transurethral resection of prostate) (2008) ?Z90.79 - Acquired absence of other genital organ(s) (ICD-10) History of appendectomy (1976) ?Z90.49 - Acquired absence of other specified parts of digestive tract (ICD-10) History of bunionectomy of left great toe ?Z98.890 - Other specified postprocedural states (ICD-10) Status post excision of Snider's neuroma ?Z98.890 - Other specified postprocedural states (ICD-10) ?Z86.69 - Personal history of other diseases of the nervous system and sense organs (ICD-10) History of vasectomy ?Z98.52 - Vasectomy status (ICD-10) Social History What is your current living situation?: I presently have a place to live Problems where you live: no known problems In the past 12 months, utilities in danger of being shut off: no In past 12 months, lack of transportation kept you from medical appts, meetings, work, or getting things needed for daily living: no In the past 12 mos, have been you worried that your food would run out before you had money to buy more?: never true In the past 12 mos, the food you bought just didn't last and you didn't have money to buy more?: never true Smoking Status: Never smoker How often do you have a drink containing alcohol: 2-3 times a week Alcohol type: wine How many standard drinks containing alcohol do you have on a typical day: 1 or 2 How often do you have six or more drinks on one occasion: Never AUDIT-C Alcohol total score: 3 Non-prescribed substance use: denies use Caffeine: Yes How often does anyone, including family, friends and others, physically hurt you: never How often does anyone, including family, friends and others, insult or talk down to you: never How often does anyone, including family, friends and others, threaten you with harm: never How often does anyone, including family, friends and others, scream or curse at you: never service: No Meds Home Medications and Allergies Home Medications ?Medication ?Instructions ?Recorded ?Confirmed ?Type acetaminophen 500 mg tablet 500 mg PO Q6H PRN 11/02/22 03/11/24 History (Acetaminophen Extra Strength) cetirizine 10 mg capsule (Allergy 10 mg PO DAILY PRN 11/02/22 03/11/24 History Relief (cetirizine)) cholecalciferol (vitamin D3) 50 50 mcg PO DAILY 11/02/22 03/11/24 History mcg (2,000 unit) chewable tablet cyanocobalamin (vitamin B-12) 100 mcg IM Q4W 11/02/22 03/11/24 History 1,000 mcg/mL injection solution (Dodex) epinephrine 0.3 mg/0.3 mL 0.3 mg IM ONCE PRN 11/02/22 03/11/24 History injection, auto-injector fluticasone propionate 50 1 spray intranasal DAILY PRN 11/02/22 03/11/24 History mcg/actuation nasal spray,suspension (24 Hour Allergy Relief) omega-3 fatty acids-fish oil 300 1 cap PO DAILY 11/02/22 03/11/24 History mg-1,000 mg capsule tizanidine 2 mg tablet 2 mg PO Q6H PRN 11/02/22 03/11/24 History gabapentin 300 mg capsule 900 mg PO HS 12/17/23 03/11/24 History Allergies Allergy/AdvReac Type Severity Reaction Status Date / Time aspirin Allergy Severe Anaphylaxis Verified 03/11/24 07:33 bee venom protein (honey bee) Allergy Mild Verified 03/11/24 07:33 trazodone Allergy Mild Verified 03/11/24 07:33 venlafaxine (From Effexor) Allergy Mild Verified 03/11/24 07:33 ciprofloxacin (From Cipro) Allergy Verified 03/11/24 07:33 sulfamethoxazole (From Allergy Verified 03/11/24 07:33 Bactrim) trimethoprim (From Bactrim) Allergy Verified 03/11/24 07:33 Exam Narrative: Exam Narrative: Physical exam GENERAL: Comfortable, no acute distress. HEAD AND NECK: Atraumatic, normocephalic CARDIOVASCULAR: RRR. Normal S1, S2. No murmurs. RESPIRATORY: Clear to auscultation B/L. Good air entry B/L. No wheezes or rhonchi. NEUROLOGY: Alert, awake, oriented X 3. Normal speech. PSYCH: Normal mood, normal affect. Const: Vital Signs, click to edit/add: Vital Signs - 24 hr 03/11/24 08:24 03/11/24 09:04 03/11/24 09:10 Temperature 97.7 F Pulse Rate 69 69 64 Pulse Rate [Pulse Oximeter] Respiratory Rate 16 16 16 Blood Pressure 134/76 131/71 111/61 Blood Pressure [Le ft Arm] Pulse Oximetry 96 98 98 Oxygen Delivery Me thod Room Air Nasal Cannula Nasal Cannula Oxygen Flow Rate 2 2 03/11/24 11:48 03/11/24 11:50 03/11/24 11:55 Temperature 97.4 F L Pulse Rate 75 72 70 Pulse Rate [Pulse Oximeter] Respiratory Rate 12 16 12 Blood Pressure 98/53 L 103/55 L 102/62 Blood Pressure [Le ft Arm] Pulse Oximetry 95 95 95 Oxygen Delivery Me thod Room Air Oxygen Flow Rate 03/11/24 12:00 03/11/24 12:05 03/11/24 12:10 Temperature 97.4 F L Pulse Rate 74 73 70 Pulse Rate [Pulse Oximeter] Respiratory Rate 16 16 16 Blood Pressure 111/58 L 102/60 101/61 Blood Pressure [Le ft Arm] Pulse Oximetry 95 94 98 Oxygen Delivery Me thod Room Air Oxygen Flow Rate 03/11/24 12:15 03/11/24 12:25 03/11/24 12:28 Temperature 97.2 F L Pulse Rate 65 69 69 Pulse Rate [Pulse Oximeter] Respiratory Rate 16 18 18 Blood Pressure 102/59 L 101/54 L 101/54 L Blood Pressure [Le ft Arm] Pulse Oximetry 95 96 96 Oxygen Delivery Me thod Room Air Room Air Room Air Oxygen Flow Rate 03/11/24 12:30 03/11/24 12:45 03/11/24 13:00 Temperature 97.3 F L 97.0 F L 97.2 F L Pulse Rate 59 L 65 67 Pulse Rate [Pulse Oximeter] Respiratory Rate 14 14 14 Blood Pressure 90/52 L 99/57 L 106/54 L Blood Pressure [Le ft Arm] Pulse Oximetry 99 96 97 Oxygen Delivery Me thod Room Air Room Air Room Air Oxygen Flow Rate 03/11/24 13:15 03/11/24 13:45 03/11/24 15:00 Temperature 97.2 F L 96.9 F L Pulse Rate 64 63 Pulse Rate [Pulse Oximeter] 76 Respiratory Rate 14 16 Blood Pressure 108/57 L 105/59 L Blood Pressure [Le ft Arm] 121/64 Pulse Oximetry 97 98 98 Oxygen Delivery Me thod Room Air Room Air Room Air Oxygen Flow Rate 03/11/24 15:09 03/11/24 15:31 Temperature Pulse Rate Pulse Rate [Pulse Oximeter] 60 Respiratory Rate 14 14 Blood Pressure Blood Pressure [Le ft Arm] Pulse Oximetry 98 Oxygen Delivery Me thod Room Air Oxygen Flow Rate Assessment and Plan Assessment and plan (1) Status post total hip replacement, left: Problem comment: -Start early ambulation with physical therapy. -Per ortho: DVT prophylaxis with at SCDs and Xarelto x5 days followed by aspirin for a total of 1 month (however, given an aspirin allergy he may need Xarelto x4 weeks). -Monitor for urine output postoperatively, bladder scan if needed. -Encourage incentive spirometry. Status: Acute (2) Aspirin allergy: Status: Acute (3) BPH (benign prostatic hyperplasia): Status: Acute (4) Fibromyalgia: Status: Acute (5) Cervical stenosis of spine: Status: Acute Total Time Spent Total Time Spent: Time spent: Today I spent 75 minutes seeing the patient, discussing the patient with ER staff, reviewing Expanse and EPIC notes/diagnostics, discussing the care plan with our care time that includes social work, PT/OT, pharmacy, RT, senior living and documenting my impressions and plan in the medical record.
--- NOTE | 2024-03-11 19:11 | PC.NURSE ---
End of Shift: Patient pleasant and cooperative, A&O. VSS, afebrile. SpO2 maintained above 90% on RA. Patient reports pain in his left hip this shift, managed with PRN medication, see MAR. Ice has been applied to hip throughout the shift. Dressing on left hip C/D/I. Denies N/V. ?A1 with walker and gait belt. Tolerating regular diet. ?
[2024-03-11] MEDS: SENNOSIDES 1 TAB TABLET 2 TAB PO (21:33)
[2024-03-11] MEDS: GABAPENTIN 300 MG CAPSULE 900 MG PO (22:36)
[2024-03-12] MEDS: CEFAZOLIN 2 GM in 0.9 % SODIUM CHLORIDE Mini-bag 100 ML IVPB (00:44)
[2024-03-12 02:23] VITALS: BP 131/64; PULSE 91; RESP 16; TEMP 36.4; O2SAT 96
[2024-03-12] MEDS: ACETAMINOPHEN 500 MG TABLET 1000 MG PO ×2 (02:31→08:33)
[2024-03-12] MEDS: HYDROmorphone 0.5 mg/0.5 ml inj IVP (05:40)
--- NOTE | 2024-03-12 05:57 | PC.NURSE ---
Shift note: Pt is doing well ambulating with A1, walker and GB. Pain rated at 5. Dressing clean and dry, ice pack applied. Pt has been using CPAP since 2300 until 0600 when he requested to get to the recliner. Alert and oriented, mentally stable. CMS intact in the left leg. Vitally stable,
[2024-03-12 07:00] VITALS: BP 124/55; PULSE 89; RESP 16; TEMP 36.7; O2SAT 98
[2024-03-12 07:06] LABS: Hematocrit 38.7 % (37.0-53.0); Hemoglobin* 12.9 gm/dL (13.5-17.5); Immature Granulocytes Pct Auto 0.2 %; Lymphocytes Percent Auto 7.3 % (20-44); Mean Corpuscular HGB Conc 33 gm/dL (32-36); Mean Corpuscular Hemoglobin 33 pg (26-34); Mean Corpuscular Volume 99 fL (80-100); Monocytes Percent Auto 8.7 % (0.0-11.0); Neutrophils Percent Auto 83.8 % (42.0-72.0); Platelet Count* 179 K/uL (140-440); RDW Coefficient of Variation % 12.9 % (11.5-15.5); Red Blood Count 3.92 m/uL (4.30-5.90); White Blood Count* 12.29 K/uL (4.50-11.00)
[2024-03-12 07:15] LABS: Sodium* 139 mmol/L (135-149)
[2024-03-12 07:16] LABS: Potassium* 4.4 mmol/L (3.6-5.1)
[2024-03-12 07:17] LABS: Slide Review Reflex No
[2024-03-12 07:18] LABS: Blood Urea Nitrogen* 16 mg/dL (7-30); Creatinine* 0.7 mg/dL (0.5-1.5); Est. Creatinine Clearance* 64.81; Estimated Glomerular Filt Rate 97 ml/min
[2024-03-12] MEDS: RIVAROXABAN 10 MG TABLET PO (08:33)
[2024-03-12] MEDS: SENNOSIDES 1 TAB TABLET 2 TAB PO (08:33)
[2024-03-12 11:00] VITALS: BP 144/71; PULSE 94; RESP 16; TEMP 36.6; O2SAT 97
--- NOTE | 2024-03-12 11:46 | PM.ORPN ---
Subjective Subjective Date Seen: 03/12/24 Principal diagnosis: Status postop day 1, left total hip arthroplasty - anterior approach Interval history: Patient reports doing well. No acute events over night. Pain managed with scheduled and PRN medications, ice. DVT prophylaxis: Rivaroxaban, SCDs, walking. Denies fevers, chills, aches, N/V, CP, SOB/MACHUCA, or lightheadedness. Notes that in the past, oxycodone was too strong for him; he requests tramadol for discharge pain medication. Notes history of athletic response to aspirin in his 20s. He has avoided since. Occasionally ibuprofen does not result in similar systemic response. Ortho Exam Narrative Exam Narrative: -Patient appears comfortable in bad; no apparent acute distress -Alert and oriented times 3 -Operative hip swollen; soft tissues supple; no obvious erythema. Warmth appropriate -Surgical dressing clean, dry, intact; no obvious drainage, no erythematous streaking peripheral to the bandage -Bilateral calves soft and supple; no significant swelling, edema, tenderness, erythema, discoloration, warmth, or palpable cords -2+ DP/PT pulses, intact dermatomes and myotomes distally (5/5 strength). No numbness about the lateral femoral cutaneous nerve distribution. Const Vital Signs, click to edit/add: Vital Signs - 24 hr 03/11/24 11:48 03/11/24 11:50 03/11/24 11:55 Temperature 97.4 F L Pulse Rate 75 72 70 Pulse Rate [Pulse Oximeter] Respiratory Rate 12 16 12 Blood Pressure 98/53 L 103/55 L 102/62 Blood Pressure [Left Arm] Pulse Oximetry 95 95 95 Oxygen Delivery Method Room Air 03/11/24 12:00 03/11/24 12:05 03/11/24 12:10 Temperature 97.4 F L Pulse Rate 74 73 70 Pulse Rate [Pulse Oximeter] Respiratory Rate 16 16 16 Blood Pressure 111/58 L 102/60 101/61 Blood Pressure [Left Arm] Pulse Oximetry 95 94 98 Oxygen Delivery Method Room Air 03/11/24 12:15 03/11/24 12:25 03/11/24 12:28 Temperature 97.2 F L Pulse Rate 65 69 69 Pulse Rate [Pulse Oximeter] Respiratory Rate 16 18 18 Blood Pressure 102/59 L 101/54 L 101/54 L Blood Pressure [Left Arm] Pulse Oximetry 95 96 96 Oxygen Delivery Method Room Air Room Air Room Air 03/11/24 12:30 03/11/24 12:45 03/11/24 13:00 Temperature 97.3 F L 97.0 F L 97.2 F L Pulse Rate 59 L 65 67 Pulse Rate [Pulse Oximeter] Respiratory Rate 14 14 14 Blood Pressure 90/52 L 99/57 L 106/54 L Blood Pressure [Left Arm] Pulse Oximetry 99 96 97 Oxygen Delivery Method Room Air Room Air Room Air 03/11/24 13:15 03/11/24 13:45 03/11/24 14:15 Temperature 97.2 F L 97.0 F L Pulse Rate 64 63 62 Pulse Rate [Pulse Oximeter] Respiratory Rate 14 14 Blood Pressure 108/57 L 105/59 L 105/59 L Blood Pressure [Left Arm] Pulse Oximetry 97 98 99 Oxygen Delivery Method Room Air Room Air Room Air 03/11/24 15:00 03/11/24 15:00 03/11/24 15:09 Temperature 96.9 F L 96.9 F L Pulse Rate 76 Pulse Rate [Pulse Oximeter] 76 Respiratory Rate 16 16 14 Blood Pressure 121/64 Blood Pressure [Left Arm] 121/64 Pulse Oximetry 98 98 98 Oxygen Delivery Method Room Air Room Air Room Air 03/11/24 15:31 03/11/24 16:00 03/11/24 17:00 Temperature 97.2 F L Pulse Rate 71 80 Pulse Rate [Pulse Oximeter] 60 Respiratory Rate 14 16 Blood Pressure 135/79 137/81 Blood Pressure [Left Arm] Pulse Oximetry 97 95 Oxygen Delivery Method Room Air Room Air 03/11/24 18:00 03/11/24 19:00 03/11/24 22:38 Temperature 97.3 F L 97.9 F Pulse Rate 76 Pulse Rate [Pulse Oximeter] 98 Respiratory Rate 16 16 16 Blood Pressure 155/89 H Blood Pressure [Left Arm] 140/72 H Pulse Oximetry 98 93 Oxygen Delivery Method Room Air Room Air 03/11/24 22:38 03/11/24 22:38 03/12/24 02:23 Temperature 97.5 F L 97.6 F Pulse Rate Pulse Rate [Pulse Oximeter] 100 91 Respiratory Rate 16 16 16 Blood Pressure Blood Pressure [Left Arm] 123/72 131/64 Pulse Oximetry 93 93 96 Oxygen Delivery Method Room Air Room Air Room Air 03/12/24 07:00 03/12/24 07:00 03/12/24 11:00 Temperature 98.1 F 98 F Pulse Rate Pulse Rate [Pulse Oximeter] 89 94 Respiratory Rate 16 16 16 Blood Pressure Blood Pressure [Left Arm] 124/55 L 144/71 H Pulse Oximetry 98 98 97 Oxygen Delivery Method Room Air Room Air Room Air Assessment and Plan Assessment and plan (1) Status post total hip replacement, left: Problem details: -Start early ambulation with physical therapy. -Per ortho: DVT prophylaxis with at SCDs and Xarelto x1 month. -Monitor for urine output postoperatively, bladder scan if needed. -Encourage incentive spirometry. Status: Acute (2) Aspirin allergy: Status: Acute (3) BPH (benign prostatic hyperplasia): Status: Acute (4) Fibromyalgia: Status: Acute (5) Cervical stenosis of spine: Status: Acute Plan - Complete 23 hour perioperative antibiotics. - PT/OT consult for education and assistance. - Social work consult for discharge planning - Prescribed analgesics as needed - DVT prophylaxis: Rivaroxaban, walking, and SCDs. We discussed considering Plavix for discharge after 5 days route the; but we elected to prescribe 30 days of 10 mg rivaroxaban for DVT prophylaxis. Patient agrees with the plan. - Anticipation is for discharge to home with family/friends today 03/12/2024 if the patient remains medically stable, pain is controlled, and they are safe with mobilization.
--- NOTE | 2024-03-12 12:28 | PC.NURSE ---
Pt discharged @ 1215, accompanied by spouse. Back to home. Discharge forms signed. Belongings form signed. IV removed. Pt AxOx4. Pain controlled. No nausea present.
== END 2024-03-12 12:15 | disposition home or self-care (01) ==
LOC: OR 07:18 → MEDSURG 07:18
PROVIDERS: PCP Family Medicine; Visit Provider Orthopaedic Surgery Sports Medicine
PROC: (CPT 27130; principal; 2024-03-11 10:00)
DX: M16.12 Unilateral primary osteoarthritis, left hip (principal); G89.18 Other acute postprocedural pain; G47.33 Obstructive sleep apnea (adult) (pediatric); Z99.89 Dependence on other enabling machines and devices; N40.1 Benign prostatic hyperplasia with lower urinary tract symptoms; N13.8 Other obstructive and reflux uropathy; M48.02 Spinal stenosis, cervical region; M79.7 Fibromyalgia; R73.03 Prediabetes
CPT/HCPCS: 27130; 01214; 36415; 64450; 73501; 76942; 82565; 84132; 84295; 84520; 85025; 86850; 86900; 86901; 97110; 97116; 97161; 97165; 97535; 99100; A9270; C1776; J0690; J1100; J1171; J2250; J2371; J2704; J2795; J3010; J7120

== ENCOUNTER 2024-03-19 09:57 | Outpatient (CLI) | payer MEDICARE, SELFPAY ==
--- NOTE | 2024-03-19 10:00 | CRLHL7_ITS ---
For Patients: As a result of the Century Cures Act, medical imaging exams and procedure reports are released immediately into your electronic medical record. You may view this report before your referring provider. If you have questions, please contact your health care provider. INDICATION: Leg pain and swelling status post left hip surgery. TECHNIQUE: Ultrasound venous duplex lower left extremity. Compression venous exam was performed using jones-scale, color Doppler, and spectral Doppler analysis. COMPARISON: None available. FINDINGS: Deep veins: Sonographic imaging demonstrates the left common femoral, deep femoral, superficial femoral, popliteal, posterior tibial, peroneal and the contralateral right common femoral veins to be fully compressible with normal color Doppler blood flow. Superficial veins: Visualized portions of the greater saphenous vein are fully compressible. Subcutaneous edema is seen along the left thigh and calf. IMPRESSION: 1. No evidence of left lower extremity deep venous thrombosis. 2. Subcutaneous edema involving the left thigh and calf. Dictated by Ruma Bolanos MD @ 03/19/2024 11:05:19 AM (Electronically Signed)
== END 2024-03-19 09:58 | disposition home or self-care (01) ==
PROVIDERS: PCP Family Medicine; Visit Provider Physician Assistant Surgical
DX: M79.605 Pain in left leg (principal); M79.89 Other specified soft tissue disorders; Z96.642 Presence of left artificial hip joint
CPT/HCPCS: 93971

== ENCOUNTER 2024-05-05 08:15 | Outpatient (RCR) | payer MEDICARE, SELFPAY ==
--- NOTE | 2024-03-03 13:05 | PT.OPEX ---
[facility] Outpatient Eval PT [facility] Outpatient Eval Start: 03/02/24 09:34 Freq: Status: Active Protocol: Document 03/03/24 10:53 ADONIS (Rec: 03/03/24 12:09 ADONIS [id number]) E-signed By Trevin Milton PT Physical Therapy Outpatient Evaluation Insurance Information Insurance Name Medicare B,[facility] Medical Diagnosis Left hip OA pre-op left hip AMPARO Treating Diagnosis Left hip pain Left hip dysfunction Decreased left hip ROM Referring MD Campuzano Subjective Preferred Name Sánchez Owen Pt. comes to therapy today with complaints of longstanding and progressive left hip pain and dysfunction due to end stage OA. Previous therapy and injections proved to be ineffective in reducing his hip pain significantly. He will be having a left hip AMPARO on 03/11/23. He lives with his in a single level [employer] with bedroom and bathroom on main floor. His bathroom has a walk in shower with grab bars in shower and on both sides of toilet. He feels like his home setup will work well for him based upon his having surgery prior to him and doing well. PMH includes; depression, skin CA, foot surgery, cervical stenosis and OA. He is very active in travel and hiking activities. Pain Comments 9 Date of Surgery (If applicable) 03/11/24 Current Work Status Retired Objective Other/Pertinent Objective Gait: Mild/Mod limp on left side due to left hip pain and mild gluteal weakness LROM:WFL Hip ROM: Right hip WFL; Left hip IR to neutral only with pain UE strength: 5/5 LE strength: Right LE 5/5: left gluteals 4/5; left quad 4 /5 Assessment Assessment/Impression Objectively, pt. demonstrates; moderate limp due to left hip pain and gluteal weakness; good knee AROM bilaterally; functional right hip ROM; limited left hip ROM especially into IR; mild left gluteal and quad weakness; good UE AROM and strength; and general deconditioning due to chronic left hip pain. He would benefit from skilled therapy working on progressive mobility, strength, and ambulation activities following surgery along with pre-surgery education and exercise instruction per pre- op AMPARO protocol. Primary Functional Limitations walking, steps, sitting, sleeping, squatting Plan of Care Rehabilitation Potential Excellent Physical Therapy Goals 1. Pt. will be independent with HEP for self maintenance in 8 weeks. 2. Pt. will demonstrate improved hip ROM and strength to functional level to allow all normal ADL's in 8 weeks. 3. Pt. will be able to walk without assistive device with good gait pattern in 8 weeks. Coordination/Communication With Referral Source Treatment Plan/Direct Interventions Gait Training,Joint Mobilization,Manual Therapy, Self-Care/Home Management, Therapeutic Activities, Therapeutic Exercises Frequency/Duration 1 pre-op visit, then Weekly for 4-8 visits S/P AMPARO Patient Will Be Discharged From Therapy Independent w/HEP, Independently Progressing Evaluation Billing Complexity Low Certification Information Initial Certification Date 03/03/24 Ending Certification Date 06/01/24 Provider Signature Required Yes Provider Signature Shows Agreement With POC & Medical Necessity Physician NPI Number Write NPI# Here Physician Comment/Change : Physician Signature & Date Requested Please Sign/Date Here
--- NOTE | 2024-03-18 12:53 | PT.OPDNX ---
PT [place] [facility] Daily Note PT [facility] Outpatient Daily Note Start: 03/02/24 09:34 Freq: Status: Active Protocol: Document 03/18/24 08:04 ENM (Rec: 03/18/24 11:22 ENM [id number]) E-signed By Madisyn Navarro DPT PT OP Daily Progress Note Visit Information Note Type Re-Evaluation Visit Number 2 Physician Authorized Visits Eval and Treat Insurance Information Recert Due Date 06/16/24 Insurance Name Medicare [employer] [facility] Medical Diagnosis Left hip OA pre-op left hip AMPARO Treating Diagnosis left hip pain decreased hip ROM muscle weakness impaired gait Referring MD Tatianna Owen Preferred Name Sánchez Owen Patient underwent a left hip replacement on 03/11/24. They found a soft cyst when he had surgery. He had a hard recovery the first the couple of days but this is now improving. Having no difficulty doing the stairs into the house. Would like to start going downstairs. Had a difficult night on the weekend due to restless leg syndrome. Was also having spasming of the left side but this has calmed down. Is only taking tramadol at night and tylenol during the day. Has been almost independent getting in< >out of bed since yesterday. Has been using a NICE machine at night. Pain Comments -06/11 right now Date of Surgery (If applicable) 03/11/24 Objective Other/Pertinent Objective Knee AROM L WNL R WNL hip ROM Flexion L 62 R 101 strength: fair quad set glute set poor compensates with bearing down and bracing stomach gait/balance: Patient with slightly decreased stance time of LLE, mild UE support on walker, intermittent flexed trunk posture, good step length swelling/observation: figure 8 L 60 cm R 57 cm mid calf L 42 cm R 39 cm fading purple bruising in posterior thigh Other: Has the most discomfort with laying supine with prolonged hip extension Patient Instructed in Risks/Benefits Yes Therapeutic Exercise Therapeutic Exercise Minutes (minutes) 14 Therapeutic Exercise: To Restore -gluteal sets 1x10 with TC for Functional Status glute squeeze vs just bearing down to perform - QS 1x10 with 5s holds -hamstring set 1x10 with 5s holds -heel slides 2x10 -Nustep seat at 11 level 1 UE/ LE for hip ROM x4 mins verbal review of HEP encouraging patient to progress repetitions as able Manual Therapy Techniques Manual Therapy Minutes (minutes) 7 Manual Therapy Techniques -supine skilled decongestive massage to left lower leg Gait & Stair Training Gait Training/Stairs Minutes (minutes) 8 Gait & Stair Training Comments -Navigating steps with 1 railing and cane up with good down with bad, pt able to sequence well without cueing -Ambulation with 2WW x1 lap 200' with pt displaying improving step length. Ambulation with SEC x50' pt able to sequence well and displays good mechanics. Discussed patient trialing use of cane within home, pt in agreement Treatment Minutes Untimed Code Treatment Minutes 19 Timed Code Treatment Minutes 29 Total Treatment Time 48 Billing Units Gait Training/Stairs Units 1 Therapeutic Exercise Units 1 Re-Evaluation Units 1 Assessment/Impression Assessment/Impression Patient returns to PT for evaluation after L AMPARO DOS 03/11. Initially was having difficulties with restless legs and spasming of muscles but this has improved. Pain is a 3-4/10 on average which increases with activity. They are getting around the house well with use of 2WW for ambulation and SEC to navigate stairs. Upon assessment patient presents with decreased hip ROM, impaired gait, impaired transfers, decreased quad strength, decreased glute strength and swelling. He is doing well displaying improving step length with gait and has good mechanics with use of SEC. Global swelling is 3 cm compared to contralateral side. Has the most difficulty with glute engagement and with laying supine due to hip extension. Impairments consistent with s/ p AMPARO. Sánchez would benefit from skilled PT to address impairments stated above for return to PLOF after joint replacement. Primary Functional Limitations walking, steps, sitting, sleeping, squatting Plan of Care Physical Therapy Goals In 2-3 weeks: 1. Patient will be able to lift leg in/out of bed or car without pain or physical assistance to improve ease of car or supine<>sit transfer 2. Patient will stand 10 minutes without use of AD or report of increased hip pain 3. Patient will perform x5 STS without use of arms and no pain for improved ease of transfers In 4-6 weeks: 1. Patient will A/D flight of 10 steps reciprocally with symmetric WB for improved navigation of household 2. Patient will stand at least 20 minutes without difficulty or discomfort 3. Patient will resume walk for exercise, gathering groceries and doing errands independently. Daily Plan of Care Continue per POC Daily Plan of Care Comments Plan: MT PRN progress to LAQ, STS, neela mensah
== END 2024-05-05 09:04 | disposition home or self-care (01) ==
PROVIDERS: PCP Family Medicine; Visit Provider Orthopaedic Surgery Sports Medicine
DX: M16.12 Unilateral primary osteoarthritis, left hip (principal); Z96.642 Presence of left artificial hip joint; M25.552 Pain in left hip; Z74.09 Other reduced mobility; M62.81 Muscle weakness (generalized); R26.9 Unspecified abnormalities of gait and mobility; Z51.89 Encounter for other specified aftercare
CPT/HCPCS: 97110; 97116; 97140; 97161; 97164

== ENCOUNTER 2025-01-18 13:00 | Outpatient (RCR) | payer MEDICARE, SELFPAY | END 2025-01-18 13:49 | disposition home or self-care (01) | PROVIDERS: PCP Family Medicine; Visit Provider Student in an Organized Health Care Education/Training Program | DX: M70.62 Trochanteric bursitis, left hip (principal); Z51.89 Encounter for other specified aftercare | CPT/HCPCS: 97110; 97140; 97161; 97164 ==